=== PATIENT | male | born 1945 | race Caucasian/White ===

== ENCOUNTER 2019-03-23 07:58 | Emergency (ER) | payer OTHER ==
--- NOTE | 2019-03-23 08:05 | PDOC ---
History of Present Illness - General Stated Complaint: HTN,BLOOD SUGAR ISSUES Time Seen by Provider: 03/23/19 08:04 - History of Present Illness Initial Comments: 03/23/19 08:51 73 y/o M hx of htn, T2DM and cirrhosis not currently on antihypertensive or diabetic medications presents to the ED with hypertension and dizziness. He was at the methadone clinic around 7:00 a.m this morning when he started feeling dizzy and was found to have a high BP and blood sugar of 488. He heas been non- compliant with medications fro the last 2-3 months. He denies any headache, blurry vision, trauma, LOC, nausea/vomiting, dyspnea, chest pain, SOB, back pain or use of cocaine or other drugs recently. He has been experiencing polydipsia. 03/23/19 09:39 Past History - Past Medical History Allergies/Adverse Reactions: Allergies Allergy/AdvReac Type Severity Reaction Status Date / Time No Known Allergies Allergy Verified 03/23/19 10:29 Home Medications: Ambulatory Orders Amlodipine Besylate 10 mg PO DAILY #3 tablet 03/23/19 Furosemide [Lasix] 25 mg PO DAILY #3 tablet 03/23/19 Hydrochlorothiazide [Hctz -] 25 mg PO DAILY #30 tablet 03/23/19 Insulin (Novolog 70/30) [Novolog Mix 70/30 Vial -] 8 units SQ DAILY #1 vial Metoprolol Succinate [Toprol Xl] 25 mg PO DAILY #3 tab.er.24h 03/23/19 *Physical Exam - Physical Exam General Appearance: Yes: Appropriately Dressed. No: Alcohol on Breath, Intoxicated HEENT: positive: EOMI, Normal Voice Neck: positive: Trachea midline, Supple Respiratory/Chest: positive: Lungs Clear, Normal Breath Sounds. negative: Chest Tender, Respiratory Distress, Accessory Muscle Use, Labored Respiration, Rapid RR, Rales, Rhonchi, Wheezing Cardiovascular: positive: Regular Rhythm, Regular Rate, S1, S2, Edema. negative : JVD Gastrointestinal/Abdominal: positive: Normal Bowel Sounds, Protuberent. negative: Guarding, Rebound, Tenderness Musculoskeletal: negative: CVA Tenderness, Decreased Range of Motion Extremity: positive: Swelling, Erythema, Other (pitting edema in lower extremities bilaterally up to the knees. 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 negative: Numbness, Sensory Deficit, Confused ED Treatment Course - LABORATORY CBC & Chemistry Diagram: 03/23/19 09:22 03/23/19 09:22 Medical Decision Making - Medical Decision Making 03/23/19 09:24 73 y/o M hc of htn,cirrhosis and t2dm presenting with hypertension and dizziness DDx: hypertensive emergency vs dka Labs/Imaging: Cbc, cmp,ekg, ua, bnp,cxr,cardiac profile,acetone level, Ct w/o contrast. 03/23/19 09:37 Patients home medication verified with pharmacy ([facility]) giving metoprolol succinate 25mg po as per home prescription and watch his BP for changes. Other home meds: Amlodipine 10mg PO qdaily HCTZ 25mg po q daily Furosemide 25mg po q daily. 03/23/19 10:01 Amlodipine and HCTZ dose added as well. 03/23/19 10:03 EKG results: normal sinus rhythm with left ventricular hypertrophy and non- specific T wave abnormality Vent rate: 79 Pr interval: 136ms qrs duration: 86ms qt/qtc: 358/410 03/23/19 10:12 cxr: no evidence of active pulmonary disease blood glucose is 422. will give insulin dose novolin 70/30 8 units as per pharmacy. 03/23/19 10:20 03/23/19 10:28 Anion gap of 6. Trop negative 03/23/19 12:36 Pts BP now 191/76. Blood glucose down to 370 (fingerstick) 03/23/19 13:03 Pt. being discharged home with instructions to follow up with PCP. Dr. Shannon Montesinos. 03/25/19 01:06 *DC/Admit/Observation/Transfer Diagnosis at time of Disposition: Hypertensive emergency - Discharge Dispostion Disposition: HOME Condition at time of disposition: Improved Decision to Admit order: No - Prescriptions Prescriptions: Amlodipine Besylate 10 mg PO DAILY #3 tablet Furosemide [Lasix] 25 mg PO DAILY #3 tablet Hydrochlorothiazide [Hctz -] 25 mg PO DAILY #30 tablet Insulin (Novolog 70/30) [Novolog Mix 70/30 Vial -] 8 units SQ DAILY #1 vial Metoprolol Succinate [Toprol Xl] 25 mg PO DAILY #3 tab.er.24h - Referrals Referrals: Sasha Biggs MD [Primary Care Provider] - - Patient Instructions Additional Instructions: You were seen in the ED today for High blood pressure and high sugar levels. A follow up appointment has been made with your provider Dr. Judy Echeverria for 2018 tommorrow. You are also being sent home with prescriptions take as directed until you can see your PCP. It is important that you do so. If you experience worsening dizziness, headache, blurry vision, lightheadness, return to the ED. - Post Discharge Activity
[2019-03-23 08:44] VITALS: TEMP 98.7; BMI 30.7
[2019-03-23] MEDS ORDERED: metoPROLOL SUCCINATE 25 MG TAB.SR.24H (FP) PO ONE (09:35)
[2019-03-23 09:43] LABS: BASO % 1.6 % (0-2.0); EOS % 0.8 % (0-4.5); LYMPH % 24.3 % (8-40); MCH 27.5 pg (25.7-33.7); MCHC 32.4 g/dl (32.0-35.9); MEAN CELL VOLUME 84.9 fl (80-96); MEAN PLT VOLUME 9.4 fl (7.5-11.1); MONO % 5.6 % (3.8-10.2); NEUT % 67.7 % (42.8-82.8); PLATELET COUNT 85 K/MM3 (134-434); RBC 4.72 M/mm3 (4.00-5.60); RDW 16.9 % (11.9-15.9); WHITE BLOOD COUNT 4.7 K/mm3 (4.0-10.0)
[2019-03-23 09:52] LABS: EPI CELLS 2.2 /HPF (0-5/HPF); HYALINE CASTS 8 /lpf (0-8); URINE APPEARANCE CLEAR; URINE BACTERIA 1.7 /hpf (NEGATIVE); URINE BILIRUBIN NEGATIVE (NEGATIVE); URINE COLOR YELLOW; URINE GLUCOSE (UA) 3+ (NEGATIVE); URINE KETONE NEGATIVE (NEGATIVE); URINE LEUK ESTERASE NEGATIVE (NEGATIVE); URINE NITRITE NEGATIVE (NEGATIVE); URINE PROTEIN 4+ (NEGATIVE); URINE RBC 14 /hpf (0-4); URINE UROBILINOGEN 0.2 mg/dL (0.2-1.0); URINE WBC 1 /hpf (0-5)
[2019-03-23] MEDS ORDERED: HYDROCHLOROTHIAZIDE 25 MG TABLET (FP) PO ONE (10:00)
[2019-03-23] MEDS ORDERED: amLODIPine BESYLATE 10 MG TABLET (FP) PO ONE (10:00)
[2019-03-23 10:13] LABS: ALK PHOS 165 U/L (45-117); ANION GAP 6 MMOL/L (8-16); BILIRUBIN,TOTAL 0.3 mg/dL (0.2-1); CALCIUM 8.4 mg/dL (8.5-10.1); CHLORIDE 107 mmol/L (98-107); CO2 28 mmol/L (21-32); CREATININE 1.7 mg/dL (0.55-1.3); N-TERMINAL BNP 2438.3 pg/ml (5-125); SGOT/AST 12 U/L (15-37); SGPT/ALT 14 U/L (13-61); SODIUM 141 mmol/L (136-145); TOT PROT 6.4 g/dl (6.4-8.2)
[2019-03-23 10:14] LABS: GLUCOSE,RANDOM 422 mg/dL (74-106)
[2019-03-23] MEDS ORDERED: amLODIPine BESYLATE 5 MG TABLET (FP) ONE (10:22)
[2019-03-23] MEDS ORDERED: INSULIN (NOVOLOG) ASPART 100 UNITS/ML 10ML VIAL SQ ONE (10:23)
[2019-03-23] MEDS ORDERED: INSULIN NPH 100 UNITS/ML *VIAL ONE (10:36)
--- NOTE | 2019-03-23 12:43 | PDOC ---
Documentation entered by Dona Mariee SCRIBE, acting as scribe for Ken Burgos MD. Ken Burgos MD: This documentation has been prepared by the Jaylene myles Brenda, SCRIBE, under my direction and personally reviewed by me in its entirety. I confirm that the documentation accurately reflects all work, treatment, procedures, and medical decision making performed by me. Attending Attestation - Resident Resident Name: ShelleyPapo - ED Attending Attestation I have performed the following: I have examined & evaluated the patient, The case was reviewed & discussed with the resident, I agree w/resident's findings & plan, Exceptions are as noted - HPI HPI: 03/23/19 10:44 The patient is a 73 year old male, with a significant PMH of HTN, NIDDM ( noncompliant with both medications for 3 months) and cirrhosis, who presents to the emergency department with dizziness and high blood pressure. The patient reports being at the methadone clinic at 7:00am this morning, at which time he began to feel dizzy and was found to be hypertensive and to have a blood sugar of 488, prompting his arrival to the ED. The patient also endorses increased thirst. The patient denies chest pain, shortness of breath, headache and dizziness. Denies fever, chills, nausea, vomiting, diarrhea and constipation. Denies dysuria, frequency, urgency and hematuria. Denies any other symptoms. Allergies: NKA Past surgical history: Not reported Social history: Denies any tobacco, alcohol or illicit drug use. PCP: Dr. Christelle Biggs - Physicial Exam PE: 03/23/19 10:45 Vitals: Triage Vital signs reviewed General Appearance: no acute distress, well nourished well developed, Head: Atraumatic, normocephalic Eyes: Pupils equal reactive round, extraocular movement intact Chest Wall: Nontender Cardiac: Regular rate and rhythm, no murmurs, no rubs, no gallops, Lungs: Clear to auscultation bilateral, good air movement bilaterally, Abdomen: (+)Fluid wave. Soft, nondistended,nontender to palpation. Extremities:(+) 3+ pitting edema in lower extremities bilaterally. Full range of motion to all extremities, no cyanosis, clubbing. Skin: Warm and dry, no rashes or lesions, no petechiae Psych: normal mood, normal affect - Medical Decision Making 03/23/19 13:01 Hypertensive insulin-dependent diabetic noncompliant with medications presents with hypertension and lightheadedness EKG within normal limits workup in the emergency department included a head CT labs EKG troponin No evidence of DKA patient's blood glucose is improving nicely status post his normal dose of insulin no anion gap no ketones in the urine his blood pressure has been corrected by approximately 10-20%. We'll restart all of patient's home medications including his insulin. We have contacted the patient's primary care provider and arranged for him to follow up tomorrow with provide patient with several day scripts for his home medications discussed at length the importance of compliance with medication and follow-up with patient he will follow up tomorrow Find his, need for follow-up and strict return instructions discussed with patient.
[2019-03-23 12:46] LABS: ACETONE SERUM NEGATIVE (NEGATIVE)
[2019-03-23] MEDS ORDERED: FUROSEMIDE 20 MG TABLET (FP) PO ONE ×2 (12:59→13:01)
[2019-03-23] MEDS ORDERED: FUROSEMIDE 40 MG TABLET (FP) ONE ×2 (13:19→13:26)
[2019-03-23 13:32] VITALS: BP 203/99; PULSE 99
--- NOTE | 2019-03-23 14:36 | EKG ---
Test Reason : Blood Pressure : / mmHG Vent. Rate : 079 BPM Atrial Rate : 079 BPM P-R Int : 136 ms QRS Dur : 086 ms QT Int : 358 ms P-R-T Axes : 038 002 004 degrees QTc Int : 410 ms POOR DATA QUALITY, INTERPRETATION MAY BE ADVERSELY AFFECTED NORMAL SINUS RHYTHM VOLTAGE CRITERIA FOR LEFT VENTRICULAR HYPERTROPHY NONSPECIFIC T WAVE ABNORMALITY ABNORMAL ECG WHEN COMPARED WITH ECG OF 25-OCT-2008 23:26, NONSPECIFIC T WAVE ABNORMALITY NOW EVIDENT IN ANTEROLATERAL LEADS Confirmed by SHERRY JIMÉNEZ MD ([id number]) on 03/23/2019 2:36:10 PM Referred By: Confirmed By:SHERRY JIMÉNEZ MD
== END 2019-03-23 13:31 | disposition home or self-care (01) ==
LOC: JER 07:58
PROC: 3E013VG Introduction of Insulin into Subcutaneous Tissue, Percutaneous Approach (ICD-10-PCS; principal; 2019-03-23)
DX: I16.1 Hypertensive emergency (principal); I10 Essential (primary) hypertension; E11.9 Type 2 diabetes mellitus without complications; K74.60 Unspecified cirrhosis of liver; Z91.14 Patient's other noncompliance with medication regimen; Z79.4 Long term (current) use of insulin
CPT/HCPCS: 36415; 70450-TC; 71045-TC-FY; 80053; 81003; 82009; 82550; 82962; 83880; 84484; 85025; 93005; 93010; 99283-25